=== PATIENT | male | born 1980 | race Two or more races ===

== ENCOUNTER 2016-09-18 18:29 | Emergency (ER) | payer OTHER ==
[~2016-09-18] VITALS: Ht 182.9 cm; Wt 83.9 kg
[2016-09-18] MEDS ORDERED: HYDROcodone-ACET 7.5/325MG TAB PO ONE (19:15)
[2016-09-18] MEDS ORDERED: SILVER SULFADIAZINE 1 % TOPICAL CREAM 50GM TOP ONE (19:15)
[2016-09-18 20:30] VITALS: BP 112/73
== END 2016-09-18 20:42 | disposition home or self-care (01) ==
LOC: ER 18:41
DX: S80.02XA Contusion of left knee, initial encounter (principal); S80.212A Abrasion, left knee, initial encounter; S70.02XA Contusion of left hip, initial encounter; S40.012A Contusion of left shoulder, initial encounter; R51 Headache; V29.9XXA Motorcycle rider (driver) (passenger) injured in unspecified traffic accident, initial encounter; Y93.89 Activity, other specified; Y99.8 Other external cause status; Y92.488 Other paved roadways as the place of occurrence of the external cause
CPT/HCPCS: 70450; 73030; 73502; 73562